=== PATIENT | male | born 2000 | race Caucasian/White ===

== ENCOUNTER 2023-08-12 18:05 | Emergency (ER) | payer OTHER ==
[2023-08-12 18:22] VITALS: TEMP 97; O2SAT 98
[2023-08-12] MEDS ORDERED: BACIGUENT PACKET TP ONE (18:23)
[2023-08-12] MEDS ORDERED: XYLOCAINE 1% HCL 20 ML MDV IJ ONE (18:23)
[2023-08-12] MEDS ORDERED: XYLOCAINE 1% HCL 20 ML MDV ONE (18:24)
[2023-08-12] MEDS ORDERED: BACIGUENT PACKET ONE (18:24)
--- NOTE | 2023-08-12 18:38 | ERPHSYRPT ---
- History of Present Illness Time Seen by Provider: 08/12/23 18:14 Source: patient Exam Limitations: no limitations Patient Subjective Stated Complaint: Pt was as work at [employer] and a rock fell on his right forearm causing a laceration Triage Nursing Assessment: Pt was brought to the ER by his girlfriend, chelle melodie, rates pain as 2/10, 3cm laceration to the dorsal right distal forearm, puses normal, skin n/w/d, not bleeding at this time, doesn't appear to be in any distress Physician History: 22 years old male up-to-date with immunizations [id number] presented to the ER when a hard rock fell on him while at work with a laceration in right distal forearm. This happened around 2 PM. Complaining of mild dull aching pain with palpation and movements. No limitation range of motion at the wrist/fingers. No numbness or tingling in the wrist/hand/fingers. No injury anywhere else. Patient has a 3 cm superficial horizontal laceration right distal third of forearm. Intact distal neurovascular. No active spurting or oozing. Thoroughly cleaned/scrubbed. Laceration is repaired. Recommended avoiding exertional activities and outpatient follow-up recommended. Discussed signs symptoms of worsening/infection needing return to ER which he seems understanding. 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[employer]: [employer] - Vaccination Dates Date of 2cond Vaccination (if applicable): 2020 - Review of Systems Constitutional: No Symptoms Ears, Nose, & Throat: No Symptoms Respiratory: No Symptoms Cardiac: No Symptoms Abdominal/Gastrointestinal: No Symptoms Musculoskeletal: Injury Skin: Skin Lesions Neurological: No Symptoms Endocrine: No Symptoms Hematologic/Lymphatic: No Symptoms Immunological/Allergic: No Symptoms - Past Medical History Pertinent Past Medical History: No - Past Surgical History Past Surgical History: Yes Musculoskeletal: Orthopedic Surgery Other Surgical History: right hand boxer fracture surgery - Social History Smoking Status: Never smoker Exposure to second hand smoke: No Drug Use: none Patient Lives Alone: No - Nursing Vital Signs Nursing Vital Signs: Initial Vital Signs Temperature 97.0 F 08/12/23 18:14 Pulse Rate 61 08/12/23 18:14 Blood Pressure 133/83 08/12/23 18:14 O2 Sat by Pulse Oximetry 98 08/12/23 18:14 Pain Scale Pain Intensity 2 - Physical Exam General Appearance: no apparent distress, alert Neck Exam: normal inspection, full range of motion Cardiovascular/Respiratory Exam: normal breath sounds, regular rate/rhythm Shoulder Exam: normal inspection, non-tender, no evidence of injury, normal ROM Elbow/Forearm Exam: soft tissue tenderness (Right wrist distal forearm superficial horizontal laceration 3 cm. No active spurting or oozing.), No bone tenderness Wrist Exam: normal inspection, non-tender, no evidence of injury, normal ROM Hand Exam: normal inspection, non-tender, no evidence of injury, normal ROM Neuro/Tendon Exam: normal sensation, normal motor functions Mental Status Exam: alert, oriented x 3, cooperative Skin Exam: normal color SpO2 Interpretation: normal SpO2: 98 O2 Delivery: Room Air Procedures - Laceration/Wound Repair Right Arm Time of Procedure: 18:39 Wound Location: Right, lower arm Wound Length (cm): 3 Wound's Depth, Shape: superficial Wound Explored: clean Irrigated: Yes Hibiclens Prep: Yes Anesthesia: 1% Lidocaine Volume Anesthetic (ccs): 3 Wound Repaired With: sutures Suture Size/Type: 4-0, ethilon Number of Sutures: 5 Layer Closure?: No Sterile Dressing Applied?: Yes Splint Applied?: Yes Type of Splint Applied: Premade aluminum Ordered Tests: Medication Summary Discontinued Medications Generic Name Dose Route Start Last Admin Trade Name Freq PRN Reason Stop Dose Admin Bacitracin Zinc 0.9 each 08/12/23 18:23 08/12/23 18:26 Bacitracin Packet 1 Each Pckt TP 08/12/23 18:24 0.9 each STAT ONE Administration Bacitracin Zinc Confirm 08/12/23 18:24 Bacitracin Packet 1 Each Pckt Administered 08/12/23 18:25 Dose 1 each .ROUTE .STK-MED ONE Lidocaine HCl 5 ml 08/12/23 18:23 08/12/23 18:26 Lidocaine Hcl 1% 20 Ml Mdv 20 Ml Ml IJ 08/12/23 18:24 5 ml STAT ONE Administration Lidocaine HCl Confirm 08/12/23 18:24 Lidocaine Hcl 1% 20 Ml Mdv 20 Ml Ml Administered 08/12/23 18:25 Dose 5 ml .ROUTE .STK-MED ONE - Progress Progress: improved Progress Note: 08/12/23 18:40 22 years old male up-to-date with immunizations [id number] presented to the ER when a hard rock fell on him while at work with a laceration in right distal forearm. This happened around 2 PM. Complaining of mild dull aching pain with palpation and movements. No limitation range of motion at the wrist/fingers. No numbness or tingling in the wrist/hand/fingers. No injury anywhere else. Patient has a 3 cm superficial horizontal laceration right distal third of forearm. Intact distal neurovascular. No active spurting or oozing. Thoroughly cleaned/scrubbed. Laceration is repaired. Recommended avoiding exertional activities and outpatient follow-up recommended. Discussed signs symptoms of worsening/infection needing return to ER which he seems understanding. Counseled pt/family regarding: diagnosis, need for follow-up Medical Desision Making - Risk of complications The pt has a mod risk of morbidity or mortality based on: Need for prescription drug management, Need for minor surgical intervention in patient with know risk factors - Departure Departure Disposition: Home Clinical Impression: Forearm laceration Condition: Stable Critical Care Time: No Referrals: ESTELITA LUGO MD [ACTIVE STAFF] - Follow up with PCP 2 days Instructions: Laceration Repair With Stitches (DC) Additional Instructions: Tylenol/ibuprofen as needed. Avoid exertional activities. Follow-up with primary care for reevaluation. Suture removal in 10 to 14 days. Return to ER for increasing pain swelling redness discharge/fever chills etc. Prescriptions: Cephalexin Mh 500 mg [Keflex 500 mg] 500 mg PO TID #21 cap
[2023-08-12] MEDS ORDERED: KEFLEX 500 MG PO ONE (18:40)
[2023-08-12] MEDS ORDERED: KEFLEX 500 MG ONE (18:43)
[2023-08-12 19:07] VITALS: BP 101/55; PULSE 68; RESP 16
== END 2023-08-12 19:07 | disposition home or self-care (01) ==
LOC: ED 18:05
DX: S51.811A Laceration without foreign body of right forearm, initial encounter (principal); W20.8XXA Other cause of strike by thrown, projected or falling object, initial encounter; Y92.64 Mine or pit as the place of occurrence of the external cause; Y99.0 Civilian activity done for income or pay
CPT/HCPCS: 12002; 96372; 99283; L3908; A9270-GY